=== PATIENT | female | born 1995 | race Hispanic/Latino ===

== ENCOUNTER 2019-12-24 20:09 | Inpatient (IN) | payer MEDICAID ==
[~2019-12-24] VITALS: Ht 167.6 cm; Wt 117.5 kg
[2019-12-24] MEDS ORDERED: LACTATED RINGERS 1000ML 1,000 ML IV PRN (20:11)
[2019-12-24] MEDS ORDERED: EPHEDRINE SULFATE 50 MG/ML AMPULE IVP PRN (20:15)
[2019-12-24] MEDS ORDERED: LACTATED RINGERS 500 ML 500 ML IV PRN (20:15)
[2019-12-24] MEDS ORDERED: NALOXONE HCL 0.4 MG/1 ML ML IV PRN (20:15)
[2019-12-24] MEDS ORDERED: AMPICILLIN 2GM+NS 100ML 100 ML IV SCH (20:15)
[2019-12-24 20:57] LABS: APPEARANCE,URINE Cloudy (CLEAR); BILIRUBIN,URINE Negative (NEGATIVE); COLOR,URINE Yellow (YELLOW); GLUCOSE, URINE (UA) Negative (NEGATIVE); KETONES,URINE 40 mg/dL (NEGATIVE); LEUKOCYTE ESTERASE ,URINE Moderate (NEGATIVE); NITRATE,URINE Negative (NEGATIVE); OCCULT BLOOD,URINE Small (NEGATIVE); PROTEIN,URINE Negative (NEGATIVE)
[2019-12-24 21:00] VITALS: BP 125/72
[2019-12-24 21:24] LABS: BACTERIA,URINE Moderate /HPF (None Seen); MUCUS,URINE Few LPF (None Seen); SQUAMOUS EPITHELIAL CELL,UR Few /HPF (0-2)
[2019-12-24] MEDS ORDERED: PROMETHAZINE HCL 25 MG/ML 1ML AMPULE IM PRN (21:45)
[2019-12-24] MEDS ORDERED: MEPERIDINE-PF 50 MG/ML SYG IVP PRN (21:45)
[2019-12-24 21:49] LABS: AMPHET/METH SCREEN,URINE NEGATIVE (NEGATIVE); BARBITURATE SCREEN, URINE NEGATIVE (NEGATIVE); BENZODIAZEPINES SCREEN,URINE NEGATIVE (NEGATIVE); CANNABINOID SCREEN,URINE NEGATIVE (NEGATIVE); COCAINE SCREEN,URINE NEGATIVE (NEGATIVE); OPIATE SCREEN,URINE NEGATIVE (NEGATIVE); PHENCYCLIDINE SCREEN,URINE NEGATIVE (NEGATIVE)
[2019-12-24 21:56] LABS: MEAN CORPUSCULAR HGB CONC 32.6 g/dL (32.0-36.0); MEAN CORPUSCULAR VOLUME 79.9 fL (79-99); PLATELET COUNT (AUTO) 215 K/uL (130-400); RED BLOOD CELL COUNT(AUTO) 4.38 MIL/uL (4.00-5.50); RED CELL DISTRIBUTION WIDTH 14.9 % (11.0-15.5); WHITE BLOOD COUNT (AUTO) 17.5 K/uL (4.8-10.8)
[2019-12-25] VITALS (7 sets, daily range): BP systolic 107–128; BP diastolic 51–77
[2019-12-25] MEDS: AMPICILLIN 1GM+NS 50ML 50 ML IV SCH ×3 (01:10→20:15)
[2019-12-25] MEDS: OXYTOCIN-LR 20 UNITS/1000 ML 1,000 ML IV SCH ×2 (05:02→10:55)
[2019-12-25] MEDS ORDERED: LIDOCAINE HCL 1% 20 ML VIAL INJ PRN (07:30)
--- NOTE | 2019-12-25 10:00 | NUR ---
PATIENT ARRIVED TO UNIT VIA LABOR BED AND MOVED INTO PP BED. PATIENT ORIENTED TO ROOM. FUNDUS IS FIRM BLEEDING SMALL ON MASSAGE. ICE PACK TO PERINEUM CONTINUES.
--- NOTE | 2019-12-25 10:15 | NUR ---
FUNDUS FIRM, BLEEDING SMALL ON INITIAL MASSAGE AND BECAME SCANT. NO CLOTS EXPELLED ON MASSAGE OR WITH HIP LIFTS. ICE PACK CONTINUES.
--- NOTE | 2019-12-25 10:40 | NUR ---
FUNDUS FIRM, BLEEDING SMALL. SITZ BATH, DERMAPLAST SPRAY, TUCKS PADS AND LANOLIN USE AND DESIRED EFFECTS EXPLAINED TO PATIENT. ADVISED PATIENT TO CALL IF ANY SEVERE ABDOMINAL CRAMPS OCCUR OR FEELING OF HEAVY BLEEDING. INSTRUCTED PATIENT TO CALL WHEN NEEDING TO AMBULATE FOR THE FIRST TIME. PATIENT VOICED UNDERSTANDING. CALL LIGHT LEFT IN REACH.
[2019-12-25] MEDS ORDERED: MEASLES/MUMPS/RUBELLA VACCINE, LIVE 0.5 ML/VIAL SQ PRN (10:45)
[2019-12-25] MEDS ORDERED: ACETAMINOPHEN-CODEINE 300/30MG TAB PO PRN (10:45)
[2019-12-25] MEDS ORDERED: LANOLIN 30GM OINTMENT TP PRN (10:45)
[2019-12-25] MEDS ORDERED: DIPH,PERTUSS(ACELL),TET VAC/PF 0.5 ML VIAL IM PRN (10:45)
[2019-12-25] MEDS ORDERED: ACETAMINOPHEN 325 MG TAB PO PRN (10:45)
[2019-12-25] MEDS ORDERED: WITCH HAZEL 1 PAD TP PRN (10:45)
[2019-12-25] MEDS: BENZOCAINE/LANOLIN/ALOE VERA 60 ML AEROSOL TP PRN (10:47)
[2019-12-25] MEDS ORDERED: PNV1TABL17 PO (12:37)
--- NOTE | 2019-12-25 13:00 | NUR ---
ASSISTED PATIENT OOB TO RESTROOM. EDUCATED PATIENT ON EMERGENCY CALL CORDS AND PERICARE. PATIENT ABLE TO VOID 700ML. NO C/O DIZZINESS ON AMBULATION. ADVISED PATIENT TO CALL WITH ANY NEEDS OR CONCERNS.
[2019-12-25] MEDS: IBUPROFEN 600 MG TABLET PO PRN (13:28)
--- NOTE | 2019-12-25 17:10 | NUR ---
SS REFERRAL- +UDS 1st OB VISIT Sw met with pt and her significant other Orlando Meek [phone], [phone]. This is first child for the couple son Anjel Meek. Couple live with her parents , mother Jodi Cole [phone], and her brother (27). Pt is independent, a all around gear machine operator, drives, has Medicaid WIC and Food stamp assistance. SO, owns his own business and is independent and drives. Couple has basic items for NB including a car seat and Dr Acosta will follow baby at md. Couple has good family support in place. Pt admits to frequent, but not heavy THC abuse prior to confirmation. Pt reports smoking 1 to 2x a week. Pt denies need for resources, referral or intervention at this time. UDS at delivery was negative. Pt denies any hx of abuse, domestic violence,mental health, legal, or CPS issues.
[2019-12-25] MEDS: DOCUSATE SODIUM 100 MG CAP PO SCH (20:33)
[2019-12-26] MEDS: AMPICILLIN 1GM+NS 50ML 50 ML IV SCH ×2 (00:15→00:25)
[2019-12-26 03:30] VITALS: BP 116/65
[2019-12-26 07:10] LABS: HEMATOCRIT 32.7 % (36-48); MEAN CORPUSCULAR HEMOGLOBIN 25.6 pg (27.0-33.0); MEAN CORPUSCULAR HGB CONC 30.9 g/dL (32.0-36.0); MEAN CORPUSCULAR VOLUME 82.8 fL (79-99); PLATELET COUNT (AUTO) 182 K/uL (130-400); RED BLOOD CELL COUNT(AUTO) 3.95 MIL/uL (4.00-5.50); RED CELL DISTRIBUTION WIDTH 15.1 % (11.0-15.5); WHITE BLOOD COUNT (AUTO) 14.4 K/uL (4.8-10.8)
[2019-12-26 07:59] VITALS: BP 121/76
[2019-12-26 08:10] LABS: HEPATITIS Bs ANTIGEN SCREEN P Negative (Negative)
--- NOTE | 2019-12-26 09:00 | NUR ---
DR. PANDYA CALLED RE STATUS OF PATIENT AND UPDATE GIVEN. RECEIVED DISCHARGE ORDER TO DISCHARGE PATIENT TO HOME. PATIENT STABLE AND DENIES PAIN.
[2019-12-26] MEDS: DOCUSATE SODIUM 100 MG CAP PO SCH (09:06)
[2019-12-26] MEDS: IBUPROFEN 600 MG TABLET PO PRN (09:07)
[2019-12-26 11:14] VITALS: BP 105/64
[2019-12-26] MEDS: BENZOCAINE/LANOLIN/ALOE VERA 60 ML AEROSOL TP PRN (11:51)
--- NOTE | 2019-12-26 12:00 | NUR ---
PATIENT WAS GIVEN DISCHARGE INSTRUCTIONS AND SCRIPT FOR PAIN MANAGEMENT AFTER DISCHARGE. VERBALIZED UNDERSTANDING INSTRUCTIONS GIVEN. PATIENT ALSO REQUESTED ANOTHER DERMAPLAST SPRAY AND TUCKS FOR CARE OF EPISIOTOMY.
--- NOTE | 2019-12-26 13:05 | NUR ---
PATIENT WAS TAKEN VIa w/c to family vehicle and was discharged to her significant other with baby. Patient is stable and denies pain.
== END 2019-12-26 13:05 | disposition home or self-care (01) | DRG 560 ==
LOC: LDH 20:09 → WSH 12-25 10:05
PROVIDERS: ADMIT Obstetrics & Gynecology; ATTEND Obstetrics & Gynecology
PROC: 10E0XZZ Delivery of Products of Conception, External Approach (ICD-10-PCS; principal; 2019-12-25)
PROC: 0UQMXZZ Repair Vulva, External Approach (ICD-10-PCS; 2019-12-25)
PROC: 3E0R3BZ Introduction of Anesthetic Agent into Spinal Canal, Percutaneous Approach (ICD-10-PCS; 2019-12-25)
PROC: 00HU33Z Insertion of Infusion Device into Spinal Canal, Percutaneous Approach (ICD-10-PCS; 2019-12-25)
PROC: 3E0234Z Introduction of Serum, Toxoid and Vaccine into Muscle, Percutaneous Approach (ICD-10-PCS; 2019-12-25)
PROC: 3E0134Z Introduction of Serum, Toxoid and Vaccine into Subcutaneous Tissue, Percutaneous Approach (ICD-10-PCS; 2019-12-25)
DX: O99.824 Streptococcus B carrier state complicating childbirth (principal); Z37.0 Single live birth; O71.82 Other specified trauma to perineum and vulva; O99.214 Obesity complicating childbirth; Z23 Encounter for immunization; Z3A.39 39 weeks gestation of pregnancy
CPT/HCPCS: 36415; 80305; 81001; 85027; 86592; 86850; 86900; 86901; 87088; 87340; A4314; G0378; J0290; J2175; J2550; J2590; J7120